=== PATIENT | male | born 1965 | race Hispanic/Latino ===

== ENCOUNTER → 2018-04-09 | Day surgery (SDC) | payer OTHER ==
[2018-04-08 13:44] LABS: BASOPHILS # (AUTO) 0.1 (0.0-0.1); BASOPHILS % 0.9 % (0.0-1.0); EOSINOPHILS # (AUTO) 0.1 (0.0-0.4); EOSINOPHILS % 1.7 % (0.0-6.0); HEMATOCRIT 44.7 % (38.2-49.6); HEMOGLOBIN 15.8 g/dL (14.0-18.0); LYMPHOCYTES # (AUTO) 2.1 (1.0-3.2); LYMPHOCYTES % 28.5 % (18.0-39.1); MEAN CORPUSCULAR HEMOGLOBIN 30.2 pg (28-32); MEAN CORPUSCULAR HGB CONC 35.3 g/dL (31-35); MEAN CORPUSCULAR VOLUME 85.5 fL (81-99); MONOCYTES # (AUTO) 0.5 (0.2-0.8); MONOCYTES % 7.1 % (4.4-11.3); NEUTROPHILS # (AUTO) 4.6 (2.1-6.9); NEUTROPHILS % 61.7 % (38.7-80.0); PLATELET COUNT 211 x10e3/uL (140-360); RED BLOOD COUNT 5.23 x10e6/uL (4.3-5.7); RED CELL DISTRIBUTION WIDTH 12.7 % (11.7-14.4)
[2018-04-08 13:58] LABS: ANION GAP 11.6 mmol/L (8-16); BLOOD UREA NITROGEN 18 mg/dL (7-26); BUN/CREATININE RATIO 20 (6-25); CALCIUM 9.2 mg/dL (8.4-10.2); CARBON DIOXIDE 24 mmol/L (22-29); CHLORIDE 108 mmol/L (98-107); CREATININE, SERUM 0.89 mg/dL (0.72-1.25); EST GLOMERULAR FILTRATION RATE > 60 ML/MIN (60-); GLUCOSE 191 mg/dL (74-118); POTASSIUM 3.6 mmol/L (3.5-5.1); SODIUM 140 mmol/L (136-145)
[~2018-04-09] MED LIST: ATORVASTATIN CA20 MG PO; BUPIVACAINE 0.25%/EPI 30ML SDV INJ ONE; DEXAMETHASONE SOD PHOS INJ 4 MG/ML VIAL ONE; FENTANYL CITRATE/PF 100MCG/2 ML INJ ONE; GLIMEPIRIDE2 MG PO; LIDOCAINE HCL 2% LOCAL INJ 5 ML SDV VIAL INJ ONE; METFORMIN HCL500 M2 PO; MIDAZOLAM HCL 2 MG/2 ML VIAL ONE; ONDANSETRON HCL INJ 2 MG/ML VIAL ONE; PANTOPRAZOLE SO40 MG PO; PROPOFOL IV EMULSION 10 MG/ML 20 ML VIAL ONE; ROCURONIUM BROMIDE 10 MG/ML 5ML VIAL ONE; SEVOFLURANE INHAL SOLN 250 ML PEN BTL ONE
--- NOTE | 2018-04-09 11:31 | Operative Report ---
DATE OF PROCEDURE: April 09, 2018 PREOPERATIVE DIAGNOSIS: Ventral hernia. POSTOPERATIVE DIAGNOSIS: Ventral hernia times 2 and umbilical hernia. OPERATION PERFORMED: Repair of ventral hernia times 2 and umbilical hernia with mesh. BOTTOMING MACHINE OPERATOR: DANIELLA Ellis. ANESTHESIA: General. COMPLICATIONS: None. ESTIMATED BLOOD LOSS: Minimal. DESCRIPTION OF PROCEDURE: With the patient lying in bed in the supine position, under good general endotracheal anesthesia, the abdomen was prepped with Betadine solution and draped in the usual manner. A midline incision was made in the supraumbilical area and carried down through the subcutaneous tissue. Immediately, a hernia sac was identified above the umbilicus. This was slowly and carefully , with normal fascia all the way around. The umbilicus was then , and there was also a hernia in the umbilical opening. Above the other defect was also a small defect representing a third hole in the supraumbilical region. The hernia sac was then resected, and the contents were reduced back to the intra-abdominal cavity. The umbilical hernia defect and the supraumbilical hernia defect were then joined into a single defect and the preperitoneal space was then dissected and cleared off without any difficulty. A medium-size V-patch was then introduced in the preperitoneal space and deployed without any problems to cover all of the defects from underneath. The uppermost defect was then closed primarily with interrupted sutures of #0 Ethibond, anchoring the mesh underneath with the repair. The other defect was then closed transversely using interrupted sutures of #0 Ethibond, anchoring the V-patch with the closing transverse #0 Ethibond sutures. The whole area was then thoroughly irrigated. Perfect hemostasis was ascertained. All layers were infiltrated on the way out with a solution of 1/4 percent Marcaine. Subcutaneous tissue was approximated with 3-0 Vicryl. The umbilicus was then tacked back down to the midline fascia with 3-0 Vicryl, and the skin was closed with clips. A dressing was applied. The sponge, lap and needle count was correct. Patient tolerated the procedure well and returned to the recovery room in stable condition. Job#: [id number]
== END | disposition home or self-care (01) ==
LOC: OR 06:30
PROVIDERS: ATTEND Surgery
DX: K43.9 Ventral hernia without obstruction or gangrene (principal); K42.9 Umbilical hernia without obstruction or gangrene; E11.9 Type 2 diabetes mellitus without complications; K21.9 Gastro-esophageal reflux disease without esophagitis; Z01.810 Encounter for preprocedural cardiovascular examination; Z01.812 Encounter for preprocedural laboratory examination
CPT/HCPCS: 36415 ×2; 49560; 49568; 49585; 80048; 82948; 85025; 93005; J1100; J2001; J2250; J2405

== ENCOUNTER → 2018-10-30 | Day surgery (SDC) | payer OTHER ==
[2018-10-29 16:14] LABS: BASOPHILS % 0.5 % (0.0-1.0); EOSINOPHILS # (AUTO) 0.1 (0.0-0.4); EOSINOPHILS % 1.2 % (0.0-6.0); HEMATOCRIT 41.8 % (38.2-49.6); HEMOGLOBIN 14.2 g/dL (14.0-18.0); LYMPHOCYTES # (AUTO) 1.8 (1.0-3.2); LYMPHOCYTES % 23.5 % (18.0-39.1); MEAN CORPUSCULAR HEMOGLOBIN 30.1 pg (28-32); MEAN CORPUSCULAR VOLUME 88.7 fL (81-99); MONOCYTES # (AUTO) 0.4 (0.2-0.8); MONOCYTES % 5.6 % (4.4-11.3); NEUTROPHILS # (AUTO) 5.3 (2.1-6.9); NEUTROPHILS % 68.8 % (38.7-80.0); PLATELET COUNT 248 x10e3/uL (140-360); RED BLOOD COUNT 4.71 x10e6/uL (4.3-5.7); RED CELL DISTRIBUTION WIDTH 13.5 % (11.7-14.4)
[2018-10-29 16:32] LABS: ANION GAP 12.8 mmol/L (8-16); BLOOD UREA NITROGEN 16 mg/dL (7-26); BUN/CREATININE RATIO 19 (6-25); CALCIUM 9.7 mg/dL (8.4-10.2); CARBON DIOXIDE 24 mmol/L (22-29); CHLORIDE 99 mmol/L (98-107); CREATININE, SERUM 0.85 mg/dL (0.72-1.25); EST GLOMERULAR FILTRATION RATE > 60 ML/MIN (60-); GLUCOSE 323 mg/dL (74-118); POTASSIUM 3.8 mmol/L (3.5-5.1); SODIUM 132 mmol/L (136-145)
[~2018-10-30] MED LIST changes: +ACETAMINOPHEN 1000 MG/100 ML IV ONE; +BUPIVACAINE 0.5%/EPI 30 ML SDV INJ ONE; +CEFOXITIN SOD 1 GM VIAL ONE; -DEXAMETHASONE SOD PHOS INJ 4 MG/ML VIAL ONE; +GELATIN SPONGE 12-7MM ONE; +HYDROGEN PEROXIDE 120 ML BTL ONE; +INSULIN REGULAR, HUMAN 100 UNIT/1 ML 3ML VIAL ONE; +KETOROLAC TROMETHAMINE 30 MG/ML VIAL ONE; +LEVOFLOXACIN 500MG/D5W 100ML 100 ML IV ONE; +LIDOCAINE HCL 2% 30 ML TUBE ONE; -ROCURONIUM BROMIDE 10 MG/ML 5ML VIAL ONE
[2018-10-30 11:10] VITALS: BP 107/78
--- NOTE | 2018-10-30 13:02 | Operative Report ---
DATE OF PROCEDURE: October 30, 2018 PREOPERATIVE DIAGNOSIS: Thrombosed external hemorrhoid at 7 o'clock with the patient in the lithotomy position. POSTOPERATIVE DIAGNOSES 1. Thrombosed external hemorrhoid at 7 o'clock with the patient in the lithotomy position. 2. Pigmented skin tag at 12 o'clock. PROCEDURES PERFORMED 1. Hemorrhoidectomy at 7 o'clock. 2. Excision of pigmented skin tag at 12 o'clock in the lithotomy position also. DESCRIPTION OF PROCEDURE: With the patient lying on the operative table in the supine position, after administration of general endotracheal anesthesia, rectal examination was performed that revealed no masses. There was an obviously present external hemorrhoid that was thrombosed at 7 o'clock with prolapse of an internal component at that location. The patient was then prepped and draped for hemorrhoidectomy. An anal block was given with 0.25% Marcaine with epinephrine, total of 20 mL. After we did that, we introduced the anoscope into the anal canal and packed it with Betadine-containing sponge. We proceeded with placing an apical stitch at the base of the internal hemorrhoid to cut off the blood supply. After we did that, we then excised the hemorrhoid beginning in the area of the anoderm along with the clot and then continued all the way up to the apical stitch. After we did that, we went ahead and closed the mucosa with running 2-0 chromic catgut in a transverse fashion to prevent stricture. Then we closed the anoderm separately and partially with 3-0 chromic. After we completed the procedure, after we ascertained that hemostasis was adequate and there was no active bleeding, we packed the anal canal with a combination of Gelfoam and Surgicel along with 2% Xylocaine jelly. Sterile dressing was applied. The patient tolerated the procedure well and was taken to the recovery room in stable condition. Job#: [id number]
== END | disposition home or self-care (01) ==
LOC: OR 06:41
PROVIDERS: ATTEND Surgery
DX: K64.5 Perianal venous thrombosis (principal); K64.8 Other hemorrhoids; D23.5 Other benign neoplasm of skin of trunk; E11.9 Type 2 diabetes mellitus without complications; Z79.84 Long term (current) use of oral hypoglycemic drugs; F41.9 Anxiety disorder, unspecified; Z01.810 Encounter for preprocedural cardiovascular examination; Z01.812 Encounter for preprocedural laboratory examination; Z88.0 Allergy status to penicillin; Z87.442 Personal history of urinary calculi
CPT/HCPCS: 36415 ×2; 46083; 80048; 82948; 85025; 88304; 93005; J0131; J1885; J1956; J2001; J2250; J2405; J2704; J0694

== ENCOUNTER 2018-11-06 11:38 | Observation (INO) | payer OTHER ==
[~2018-11-06] VITALS: Ht 175.3 cm; Wt 78.5 kg
[~2018-11-06 11:38] MED LIST changes: -ACETAMINOPHEN 1000 MG/100 ML IV ONE; -BUPIVACAINE 0.25%/EPI 30ML SDV INJ ONE; -BUPIVACAINE 0.5%/EPI 30 ML SDV INJ ONE; -CEFOXITIN SOD 1 GM VIAL ONE; -FENTANYL CITRATE/PF 100MCG/2 ML INJ ONE; -GELATIN SPONGE 12-7MM ONE; -HYDROGEN PEROXIDE 120 ML BTL ONE; -INSULIN REGULAR, HUMAN 100 UNIT/1 ML 3ML VIAL ONE; -KETOROLAC TROMETHAMINE 30 MG/ML VIAL ONE; -LEVOFLOXACIN 500MG/D5W 100ML 100 ML IV ONE; -LIDOCAINE HCL 2% 30 ML TUBE ONE; -LIDOCAINE HCL 2% LOCAL INJ 5 ML SDV VIAL INJ ONE; -MIDAZOLAM HCL 2 MG/2 ML VIAL ONE; -ONDANSETRON HCL INJ 2 MG/ML VIAL ONE; -PROPOFOL IV EMULSION 10 MG/ML 20 ML VIAL ONE; -SEVOFLURANE INHAL SOLN 250 ML PEN BTL ONE
[2018-11-06] MEDS ORDERED: LEVOFLOXACIN 500MG/D5W 100ML 100 ML IV ONE (12:11)
[2018-11-06] MEDS ORDERED: GELATIN SPONGE 12-7MM ONE ×2 (12:26→13:42)
[2018-11-06] MEDS ORDERED: BUPIVACAINE 0.25%/EPI 30ML SDV INJ ONE (12:26)
[2018-11-06] MEDS ORDERED: LIDOCAINE JELLY 2% 10ML URO-JET ONE (12:28)
[2018-11-06] MEDS ORDERED: INSULIN REGULAR, HUMAN 100 UNIT/1 ML 3ML VIAL ONE (12:39)
[2018-11-06] MEDS ORDERED: HYDROGEN PEROXIDE 120 ML BTL ONE (13:23)
[2018-11-06] MEDS ORDERED: ONDANSETRON HCL INJ 2 MG/ML VIAL IV PRN (14:15)
[2018-11-06] MEDS ORDERED: HYDROMORPHONE 1MG/1ML INJ IV PRN (14:15)
[2018-11-06] MEDS ORDERED: FENTANYL CITRATE/PF 100MCG/2 ML INJ ONE ×2 (14:39→19:31)
--- NOTE | 2018-11-06 15:04 | Operative Report ---
DATE OF PROCEDURE: November 06, 2018 PREOPERATIVE DIAGNOSIS: Thrombosed hemorrhoid at 11 o'clock. POSTOPERATIVE DIAGNOSIS: Thrombosed hemorrhoid at 11 o'clock. PROCEDURE PERFORMED: Hemorrhoidectomy at 11 o'clock position with the patient in lithotomy position. INDICATIONS AND FINDINGS: A 53-year-old male who 6 days ago underwent hemorrhoidectomy at 7 o'clock for actively thrombosed hemorrhoid, who on followup was found to have another thrombosed hemorrhoid this time at 11 o'clock and very painful. The patient wished to have surgically intervention as opposed to pain control. INTRAOPERATIVE FINDINGS: The patient had a thrombosed external hemorrhoid at 11 o'clock with necrosis external hemorrhoid at 11 o'clock with some ischemic changes of the mucosa of the internal component. Hemorrhoidectomy was then performed. The previously removed hemorrhoid at 7 o'clock appeared to be intact. There was no evidence of infection. DESCRIPTION OF PROCEDURE: With the patient lying on the operating table in the supine position and after administration of general anesthesia, he was prepped and draped for hemorrhoidectomy. With the patient in the lithotomy position, the patient was given an anal block with 0.25% Marcaine with epinephrine. Then the anoscope was introduced. An apical stitch was placed at the apex of the internal component with 0 chromic. Then the hemorrhoidectomy was performed by incising and removing the clotted hemorrhoid along with the internal component up to the apical stitch. The mucosa was then closed with a running partially locking 2-0 chromic. The anoderm was partially closed using interrupted 3-0 chromic also. An anal pack was placed with Gelfoam and Surgicel with 2% jelly. Then a sterile dressing was applied to the anus. The patient tolerated the procedure well. Taken to the recovery room in stable condition. Job#: [id number] MARILEE
[2018-11-06 15:28] VITALS: BP 124/74
[2018-11-06] MEDS: HYDROMORPHONE 2MG/ML 2 MG/ML ML IV PRN (15:28)
[2018-11-06] MEDS: SODIUM CHLORIDE 0.9% 1000ML 1,000 ML IV SCH (15:28)
[2018-11-06] MEDS: METRONIDAZOLE 500MG/NS 100ML 100 ML IV SCH (15:28)
[2018-11-06 16:01] VITALS: BP 124/74
[2018-11-06] MEDS ORDERED: METOCLOPRAMIDE HCL 10 MG/2ML VIAL ONE (18:35)
[2018-11-06] MEDS ORDERED: SEVOFLURANE INHAL SOLN 250 ML PEN BTL ONE (18:35)
[2018-11-06] MEDS ORDERED: LIDOCAINE HCL 2% LOCAL INJ 5 ML SDV VIAL INJ ONE (18:35)
[2018-11-06] MEDS ORDERED: PROPOFOL IV EMULSION 10 MG/ML 20 ML VIAL ONE (18:35)
[2018-11-06] MEDS ORDERED: ONDANSETRON HCL INJ 2 MG/ML VIAL ONE (18:35)
[2018-11-06] MEDS ORDERED: MIDAZOLAM HCL 2 MG/2 ML VIAL ONE (19:31)
[2018-11-06] MEDS: HYDROCODONE/APAP 7.5MG-325MG 1 EA TAB PO PRN (19:57)
[2018-11-06 20:00] VITALS: BP 119/66
[2018-11-07] VITALS: BP 119/67
[2018-11-07] MEDS: SODIUM CHLORIDE 0.9% 1000ML 1,000 ML IV SCH ×2 (00:09→11:42)
[2018-11-07] MEDS: HYDROCODONE/APAP 7.5MG-325MG 1 EA TAB PO PRN ×2 (00:10→09:09)
[2018-11-07] MEDS: METRONIDAZOLE 500MG/NS 100ML 100 ML IV SCH ×3 (00:15→11:42)
[2018-11-07] MEDS: HYDROMORPHONE 2MG/ML 2 MG/ML ML IV PRN ×2 (03:59→09:09)
[2018-11-07 09:20] VITALS: BP 122/64
[2018-11-07 10:04] VITALS: BP 122/64
[2018-11-07 12:00] VITALS: BP 112/66
[2018-11-07] MEDS ORDERED: LEVOFLOXACIN 500MG/D5W 100ML 100 ML IV SCH (12:00)
== END 2018-11-07 16:07 | disposition home or self-care (01) ==
LOC: OR 11:38 → PACU V 14:13 → MED/SURG 14:57
PROVIDERS: ADMIT Surgery; ATTEND Surgery
DX: K64.5 Perianal venous thrombosis (principal); E11.9 Type 2 diabetes mellitus without complications; Z79.84 Long term (current) use of oral hypoglycemic drugs; Z87.891 Personal history of nicotine dependence; Z88.0 Allergy status to penicillin
CPT/HCPCS: 36415; 46320; 82948; 88304; 96367; 96374; 96376; G0378 ×2; J1170 ×2; J1817; J1956 ×2; J2001; J2250; J2405 ×2; J2704; J2765; J7030 ×2

== ENCOUNTER 2019-06-10 10:27 | Emergency (ER) | payer OTHER ==
[~2019-06-10] VITALS: Ht 172.7 cm; Wt 83.5 kg
[2019-06-10] MEDS ORDERED: KETOROLAC TROMETHAMINE 30 MG/ML VIAL IV STA (10:44)
[2019-06-10] MEDS ORDERED: SODIUM CHLORIDE 0.9% 1000ML 1,000 ML IV STA ×2 (10:44→12:47)
[2019-06-10] MEDS ORDERED: SODIUM CHLORIDE 0.9% 1000ML 1,000 ML ONE ×2 (10:57→12:43)
[2019-06-10] MEDS ORDERED: SODIUM CHLORIDE 0.9% 50ML 50 ML ONE (11:19)
[2019-06-10] MEDS ORDERED: IOPAMIDOL 370 MG/ML 200 ML INFUS..BTL INJ ONE (11:19)
--- NOTE | 2019-06-10 12:00 | Diagnostic Imaging Report ---
EXAM: CT Abdomen and Pelvis WITH intravenous contrast INDICATION: Abdominal pain COMPARISON: None. TECHNIQUE: Abdomen and pelvis were scanned utilizing a multidetector helical scanner from the lung base to the pubic symphysis after administration of IV contrast. Coronal and sagittal reformations were obtained. Routine protocol was performed. Scan was performed when during portal venous phase. IV CONTRAST: 100 mL of Isovue-370 ORAL CONTRAST: Water COMPLICATIONS: None RADIATION DOSE: Total DLP: 788.13 mGy*cm Dose modulation, iterative reconstruction, and/or weight based adjustment of the mA/kV was utilized to reduce the radiation dose to as low as reasonably achievable. FINDINGS: LOWER THORAX: No focal consolidation. 3 mm pulmonary nodule in the left lower lobe on series 2 image 1. HEPATOBILIARY: No focal hepatic lesions. No biliary ductal dilatation. The gallbladder appears unremarkable. SPLEEN: No splenomegaly. PANCREAS: No focal masses or ductal dilatation. ADRENALS: No adrenal nodules. KIDNEYS/URETERS: No hydronephrosis, stones, or solid mass lesions. PELVIC ORGANS/BLADDER: Unremarkable. PERITONEUM / RETROPERITONEUM: No free air or fluid. LYMPH NODES: No lymphadenopathy. VESSELS: Mild scattered athetotic calcifications of the abdominal aorta and major branches. GI TRACT: No distention or wall thickening. Appendix. BONES AND SOFT TISSUES: Mild degenerative changes of the visualized spine. No suspicious lytic or blastic lesions. IMPRESSION: No acute findings in the abdomen or pelvis. Signed by: Anum Junior MD on 06/10/2019 11:57 AM
[2019-06-10 13:39] VITALS: BP 135/77
== END 2019-06-10 13:49 | disposition home or self-care (01) ==
LOC: FSED 10:27
DX: R19.7 Diarrhea, unspecified (principal); R10.9 Unspecified abdominal pain; K52.9 Noninfective gastroenteritis and colitis, unspecified; E86.0 Dehydration; I10 Essential (primary) hypertension; E11.9 Type 2 diabetes mellitus without complications
CPT/HCPCS: 74177; 80053; 81003; 85025; 99284; J1885; J7030; Q9967

== ENCOUNTER 2019-06-12 14:10 | Observation (INO) | payer OTHER ==
[~2019-06-12] VITALS: Ht 172.7 cm; Wt 80.4 kg
[~2019-06-12 14:10] MED LIST changes: +MORPHINE SULFATE 2 MG/ML SYR 1ML IV PRN
--- OUTSIDE RECORDS SUMMARY | 2019-06-12 14:13 | XMS REPORT ---
Author Author [facility] Address Unknown Phone Unavailable Care Team Providers Care Guest Relations Manager Name Role Phone Alessandro GRAY Unavailable Unavailable Problems This patient has no known problems. Allergies, Adverse Reactions, Alerts This patient has no known allergies or adverse reactions. Medications This patient has no known medications. Results Test Description Test Time Test Comments Text Results Atomic Results Result Comments CT ABD/PEL WITH CONTRAST-HOPD 2019-06-10 11:52:00 [place] [address] Patient Name: JENIFER NAPIER MR #: [id number] : 1965 Age/Sex: 53/M Req #: [id number] Adm Physician: Ordered by: ENRIQUE GRAY MD Report #: [id number] Location: COUNTS INCLUDE [facility] BEDS AT THE [facility] Room/Bed: Procedure: [id number] HOPD/CT ABD/PEL WITH CONTRAST-HOPD Exam Date: 06/10/19 Exam Time: 1149 REPORT STATUS: Signed EXAM: CT Abdomen and Pelvis WITH intravenous c ontrast INDICATION: Abdominal pain COMPARISON: None. TECHNIQUE: Abdomen and pelvis were scanned utilizing a multidetector helical scanner from the lung base to the pubic symphysis after administration of IV contrast. Coronal and sagittal reformations were obtained. Routine protocol was performed. Scan was performed when during portal venous phase. IV CONTRAST: 100 mL of Isovue-370 ORAL CONTRAST: Water COMPLICATIONS: None RADIATION DOSE: Total DLP: 788.13 mGy*cm Dose modulation, iterative reconstruction, and/or weight based adjustment of the mA/kV was utilized to reduce the radiation dose to as low as reasonably achievable. FINDINGS: LOWER THORAX: No focal consolidation. 3 mm pulmonary nodule in the left lower lobe on series 2 image 1. HEPATOBILIARY: No focal hepatic lesions. No biliary ductal dilatation. The gallbladder appears unremarkable. SPLEEN: No splenomegaly. PANCREAS: No focal masses or ductal dilatation. ADRENALS: No adrenal nodules. KIDNEYS/URETERS: No hydronephrosis, stones, or solid mass lesions. PELVIC ORGANS/BLADDER: Unremarkable. PERITONEUM / RETROPERITONEUM: No free air or fluid. LYMPH NODES: No lymphadenopathy. VESSELS: Mild scattered athetotic calcifications of the abdominal aorta and major branches. GI TRACT: No distention or wall thickening. Appendix. BONES AND SOFT TISSUES: Mild degenerative changes of the visualized spine. No suspicious lytic or blastic lesions. IMPRESSION: No acute findings in the abdomen or pelvis. Signed by: Eliceo Junior MD on 06/10/2019 11:57 AM Dictated By: ELICEO JUNIOR MD 115 Transcribed By: INO on 06/10/19 3404 COPY TO: ENRIQUE GRAY MD
--- NOTE | 2019-06-12 15:28 | Diagnostic Imaging Report ---
Exam: KUB --4 views with chest radiograph Clinical History: Diffuse abdominal pain. Comparison: CT abdomen/pelvis 06/10/2019. Findings: Nonobstructive bowel gas pattern. No evidence of free intraperitoneal air. No evidence of abnormal calcification. No acute bony abnormality. The lungs are clear. No evidence of pneumonia or pulmonary edema. No evidence of pleural effusion or pneumothorax. The cardiomediastinal silhouette is unremarkable. Impression: No acute radiographic abnormality. Signed by: Dr. Real Gonzalez MD on 06/12/2019 3:25 PM
[2019-06-12 15:33] LABS: BASOPHILS % 0.7 % (0.0-1.0); EOSINOPHILS # (AUTO) 0.1 (0.0-0.4); EOSINOPHILS % 1.3 % (0.0-6.0); HEMATOCRIT 45.6 % (38.2-49.6); HEMOGLOBIN 15.9 g/dL (14.0-18.0); LYMPHOCYTES # (AUTO) 1.3 (1.0-3.2); LYMPHOCYTES % 28.6 % (18.0-39.1); MEAN CORPUSCULAR HEMOGLOBIN 29.2 pg (28-32); MEAN CORPUSCULAR HGB CONC 34.9 g/dL (31-35); MEAN CORPUSCULAR VOLUME 83.7 fL (81-99); MONOCYTES # (AUTO) 0.5 (0.2-0.8); MONOCYTES % 11.9 % (4.4-11.3); NEUTROPHILS # (AUTO) 2.6 (2.1-6.9); NEUTROPHILS % 57.3 % (38.7-80.0); PLATELET COUNT 227 x10e3/uL (140-360); RED BLOOD COUNT 5.45 x10e6/uL (4.3-5.7); RED CELL DISTRIBUTION WIDTH 12.9 % (11.7-14.4)
[2019-06-12 15:36] LABS: BILIRUBIN,URINE NEGATIVE (NEGATIVE); CLARITY,URINE CLEAR (CLEAR); COLOR,URINE YELLOW (YELLOW); KETONES,URINE NEGATIVE (NEGATIVE); LEUKOCYTE ESTERASE ,URINE NEGATIVE (NEGATIVE); NITRITE,URINE NEGATIVE (NEGATIVE); PROTEIN,URINE DIPSTICK TRACE (NEGATIVE); URINE UROBILINOGEN 0.2 mg/dL (0.2 - 1)
[2019-06-12 15:50] LABS: AMORPHOUS SEDIMENT,URINE FEW (FEW); BACTERIA,URINE MODERATE /HPF; EPITHELIAL CELLS,URINE FEW /LPF; MUCUS,URINE MODERATE (RARE)
[2019-06-12 15:53] LABS: ALANINE AMINOTRANSFERASE 27 IU/L (0-55); ALBUMIN/GLOBULIN RATIO 0.7 (0.8-2.0); ALKALINE PHOSPHATASE 161 IU/L (40-150); ANION GAP 13.6 mmol/L (8-16); BLOOD UREA NITROGEN 14 mg/dL (7-26); BUN/CREATININE RATIO 17 (6-25); CALCIUM 9.3 mg/dL (8.4-10.2); CARBON DIOXIDE 23 mmol/L (22-29); CHLORIDE 104 mmol/L (98-107); CREATINE KINASE 30 IU/L (30-200); CREATININE, SERUM 0.83 mg/dL (0.72-1.25); EST GLOMERULAR FILTRATION RATE > 60 ML/MIN (60-); GLUCOSE 188 mg/dL (74-118); POTASSIUM 3.6 mmol/L (3.5-5.1); SODIUM 137 mmol/L (136-145)
[2019-06-12] MEDS ORDERED: ONDANSETRON HCL INJ 2MG/ML 2ML 2 MG/ML VIAL IV ONE (15:54)
[2019-06-12] MEDS ORDERED: PANTOPRAZOLE 40 MG 10ML VIAL IV ONE (15:54)
[2019-06-12] MEDS ORDERED: MORPHINE SULFATE INJ 4 MG/ML INJ 1ML IV ONE (15:54)
[2019-06-12] MEDS ORDERED: SODIUM CHLORIDE 0.9% 1000ML 1,000 ML IV ONE (15:54)
[2019-06-12] MEDS ORDERED: SODIUM CHLORIDE 0.9% 1000ML 1,000 ML IV SCH (15:58)
[2019-06-12] MEDS ORDERED: DEXTROSE 50% SYRINGE 50 ML IV PRN (16:00)
[2019-06-12] MEDS ORDERED: ONDANSETRON HCL INJ 2MG/ML 2ML 2 MG/ML VIAL IV PRN (16:00)
[2019-06-12] MEDS ORDERED: MORPHINE SULFATE INJ 4 MG/ML INJ 1ML IV PRN (16:15)
[2019-06-12] MEDS ORDERED: INSULIN REGULAR, HUMAN 100 UNIT/1 ML 3ML VIAL SQ SCH (16:30)
[2019-06-12] MEDS ORDERED: ACETAMINOPHEN 325 MG TAB PO ONE (17:00)
[2019-06-12] MEDS ORDERED: ACETAMINOPHEN 325 MG TAB PO PRN (18:30)
--- NOTE | 2019-06-12 20:30 | NUR ---
Patient transferred form ER via wheelchair. A&Ox4, respirations even & unlabored, no distress noted. Ambulatory w/o assistance. IV to R FA, patent & no infiltration noted. Tele # [phone]. Bowels x4 active, patient states he is no longer having diarrhea. Tender to touch in epigastric area. Patient denies any issues or needs at this time. Call light within reach, bed set to lowest position, side rails x2 raised. is at bedside.
[2019-06-12] MEDS: INSULIN LISPRO 100 UNIT/1 ML 3ML VIAL SQ SCH (21:00)
[2019-06-12] MEDS: SODIUM CHLORIDE 0.9% 1000ML 1,000 ML IV SCH ×2 (21:31→21:33)
[2019-06-12 21:53] VITALS: BP 114/75
[2019-06-12 22:51] VITALS: BP 114/75
[2019-06-12 22:57] VITALS: BP 114/75
[2019-06-13 00:49] VITALS: BP 120/73
[2019-06-13 05:58] VITALS: BP 114/71
--- NOTE | 2019-06-13 07:06 | NUR ---
received pt lying in bed with eyes closed, Resp even and unlabored. IV fluids @ 125ml/hr to right FA. call light within reach.
[2019-06-13 07:13] LABS: BASOPHILS % 0.4 % (0.0-1.0); EOSINOPHILS # (AUTO) 0.1 (0.0-0.4); EOSINOPHILS % 1.9 % (0.0-6.0); HEMATOCRIT 40.6 % (38.2-49.6); HEMOGLOBIN 14.2 g/dL (14.0-18.0); LYMPHOCYTES # (AUTO) 1.8 (1.0-3.2); LYMPHOCYTES % 37.6 % (18.0-39.1); MEAN CORPUSCULAR HEMOGLOBIN 29.2 pg (28-32); MEAN CORPUSCULAR VOLUME 83.5 fL (81-99); MONOCYTES # (AUTO) 0.5 (0.2-0.8); MONOCYTES % 11.1 % (4.4-11.3); NEUTROPHILS # (AUTO) 2.3 (2.1-6.9); NEUTROPHILS % 48.6 % (38.7-80.0); PLATELET COUNT 205 x10e3/uL (140-360); RED BLOOD COUNT 4.86 x10e6/uL (4.3-5.7); RED CELL DISTRIBUTION WIDTH 12.6 % (11.7-14.4)
[2019-06-13] MEDS: INSULIN LISPRO 100 UNIT/1 ML 3ML VIAL SQ SCH ×2 (07:30→11:30)
[2019-06-13] MEDS: SODIUM CHLORIDE 0.9% 1000ML 1,000 ML IV SCH (08:10)
[2019-06-13 08:19] LABS: ALANINE AMINOTRANSFERASE 24 IU/L (0-55); ALBUMIN 2.7 g/dL (3.5-5.0); ALBUMIN/GLOBULIN RATIO 0.8 (0.8-2.0); ALKALINE PHOSPHATASE 135 IU/L (40-150); ANION GAP 12.2 mmol/L (8-16); BLOOD UREA NITROGEN 9 mg/dL (7-26); BUN/CREATININE RATIO 12 (6-25); CALCIUM 8.5 mg/dL (8.4-10.2); CARBON DIOXIDE 23 mmol/L (22-29); CHLORIDE 109 mmol/L (98-107); CREATININE, SERUM 0.76 mg/dL (0.72-1.25); EST GLOMERULAR FILTRATION RATE > 60 ML/MIN (60-); GLUCOSE 126 mg/dL (74-118); PHOSPHORUS 2.7 MG/DL (2.3-4.7); POTASSIUM 3.2 mmol/L (3.5-5.1); SODIUM 141 mmol/L (136-145)
[2019-06-13 08:31] VITALS: BP 155/88
[2019-06-13 08:37] VITALS: BP 155/88
[2019-06-13] MEDS ORDERED: LACTOBACILLUS ACIDOPHILUS CAPSULE PO SCH (09:00)
[2019-06-13 12:22] VITALS: BP 139/66
[2019-06-13] MEDS ORDERED: POTASSIUM CHLORIDE 20 MEQ TAB CR PO NR (14:30)
--- NOTE | 2019-06-13 20:46 | Discharge Summary ---
PRIMARY CARE DOCTOR: Dr. Jonathan Feldman. FINAL DIAGNOSIS: Dehydration due to viral gastroenteritis. SECONDARY DIAGNOSIS: Diabetes. CONSULTANTS: None. PROCEDURES/STUDIES PERFORMED: None. HISTORY: Per H and P. HOSPITAL COURSE: The patient was aggressively hydrated. His diarrhea resolved. Currently, the patient is tolerating p.o. He is urinating well. We will replete his hypokalemia prior to discharge. The patient was seen and examined today. CONDITION ON DISCHARGE: Improved. DISCHARGE MEDICATIONS: Please see medication reconciliation form. Yiching Tony Jones MD YAL/MODL /[id number] cc: Jonathan Feldman MD
== END 2019-06-13 15:20 | disposition home or self-care (01) ==
LOC: ER 14:10 → ERHOLD 16:13 → INTOOBSV 16:13 → MED/SURG2 20:51
PROVIDERS: ADMIT Internal Medicine; ATTEND Internal Medicine
DX: A08.4 Viral intestinal infection, unspecified (principal); E86.0 Dehydration; E11.65 Type 2 diabetes mellitus with hyperglycemia; E78.5 Hyperlipidemia, unspecified; Z88.0 Allergy status to penicillin; Z83.3 Family history of diabetes mellitus; Z82.49 Family history of ischemic heart disease and other diseases of the circulatory system; E87.6 Hypokalemia; Z79.84 Long term (current) use of oral hypoglycemic drugs
CPT/HCPCS: 36415 ×2; 74022; 80053 ×2; 81001; 82550; 82553; 83690; 83735 ×2; 84100; 84484; 85025 ×2; 93005; 99284; G0378 ×2; J7030 ×2; J2270; J2405

== ENCOUNTER 2019-07-07 08:14 | Observation (INO) | payer OTHER ==
[~2019-07-07] VITALS: Ht 172.7 cm; Wt 80.3 kg
[~2019-07-07 08:14] MED LIST changes: -MORPHINE SULFATE 2 MG/ML SYR 1ML IV PRN
[2019-07-07 09:16] LABS: BASOPHILS # (AUTO) 0.1 (0.0-0.1); BASOPHILS % 0.8 % (0.0-1.0); EOSINOPHILS # (AUTO) 0.1 (0.0-0.4); EOSINOPHILS % 1.8 % (0.0-6.0); HEMATOCRIT 43.1 % (38.2-49.6); HEMOGLOBIN 14.9 g/dL (14.0-18.0); LYMPHOCYTES # (AUTO) 1.5 (1.0-3.2); LYMPHOCYTES % 23.4 % (18.0-39.1); MEAN CORPUSCULAR HEMOGLOBIN 29.4 pg (28-32); MEAN CORPUSCULAR HGB CONC 34.6 g/dL (31-35); MEAN CORPUSCULAR VOLUME 85.2 fL (81-99); MONOCYTES # (AUTO) 0.4 (0.2-0.8); MONOCYTES % 5.8 % (4.4-11.3); NEUTROPHILS # (AUTO) 4.5 (2.1-6.9); NEUTROPHILS % 67.6 % (38.7-80.0); PLATELET COUNT 184 x10e3/uL (140-360); RED BLOOD COUNT 5.06 x10e6/uL (4.3-5.7); RED CELL DISTRIBUTION WIDTH 13.4 % (11.7-14.4)
--- NOTE | 2019-07-07 09:18 | NUR ---
Pt sitting up in bed. RR even and unlabored. NIBP, pulse ox, and cardiac monitoring applied to pt. Bed locked in lowest position. Call light in reach. Will continue to monitor.
[2019-07-07 09:32] LABS: INR 0.85; PROTHROMBIN TIME 12.1 seconds (11.9-14.5)
[2019-07-07 09:33] LABS: PARTIAL THROMBOPLASTIN TIME 29.4 seconds (23.8-35.5)
[2019-07-07 09:42] LABS: ALANINE AMINOTRANSFERASE 20 IU/L (0-55); ALBUMIN 3.5 g/dL (3.5-5.0); ALKALINE PHOSPHATASE 159 IU/L (40-150); ANION GAP 14.5 mmol/L (8-16); BLOOD UREA NITROGEN 17 mg/dL (7-26); BUN/CREATININE RATIO 22 (6-25); CALCIUM 9.2 mg/dL (8.4-10.2); CARBON DIOXIDE 23 mmol/L (22-29); CHLORIDE 104 mmol/L (98-107); CREATINE KINASE 72 IU/L (30-200); CREATININE, SERUM 0.79 mg/dL (0.72-1.25); EST GLOMERULAR FILTRATION RATE > 60 ML/MIN (60-); GLUCOSE 236 mg/dL (74-118); POTASSIUM 3.5 mmol/L (3.5-5.1); SODIUM 138 mmol/L (136-145)
--- NOTE | 2019-07-07 09:42 | Diagnostic Imaging Report ---
CT BRAIN WO HISTORY: Dizziness COMPARISON: None. TECHNIQUE: Noncontrast axial scans were obtained from skull base to the vertex. Coronal and sagittal reconstructions obtained from the axial data. One or more of the following dose reduction techniques were used: Automated exposure control, adjustment of the mA and/or kV according to patient size, and/or utilization of iterative reconstruction technique. DISCUSSION: Scalp/Skull: Unremarkable. Brain sulci: Appropriate for patient's age. Ventricles: Normal in size and configuration. No hydrocephalus. Extra-axial spaces: No masses or fluid collections. Mild carotid siphon calcifications are present. Parenchyma: No abnormal densities. No mass, hemorrhage, or large vascular territory acute infarct. Dural sinuses: No abnormal densities. Sellar/Suprasellar region: Intact. Skull base: Intact. Incidental findings: None. IMPRESSION: No acute intracranial abnormalities. Signed by: Dr. Moi Ko M.D. on 07/07/2019 9:29 AM
--- NOTE | 2019-07-07 10:15 | Diagnostic Imaging Report ---
EXAMINATION: CHEST 2 VIEWS INDICATION: Shortness of breath and dizziness COMPARISON: Chest radiograph of 06/12/2019 FINDINGS: LINES/TUBES:EKG leads overlie the chest. LUNGS:The lungs are well-inflated. No focal consolidation or pulmonary edema. PLEURA:No pleural effusion or pneumothorax. MEDIASTINUM:The cardiomediastinal silhouette appears normal in size and shape. BONES/SOFT TISSUES:No acute osseous injury. ABDOMEN:No free air under the diaphragm. IMPRESSION: No focal pneumonia or pulmonary edema. Signed by: Anum Junior MD on 07/07/2019 10:11 AM
[2019-07-07] MEDS ORDERED: SODIUM CHLORIDE 0.9% 1000ML 1,000 ML IV STA (10:29)
[2019-07-07] MEDS ORDERED: MORPHINE SULFATE 2 MG/ML SYR 1ML IV PRN (10:30)
[2019-07-07] MEDS ORDERED: DIPHENHYDRAMINE HCL INJ 50 MG/ML VIAL IV PRN (10:30)
[2019-07-07] MEDS ORDERED: ACETAMINOPHEN 325 MG TAB PO PRN (10:30)
[2019-07-07] MEDS ORDERED: ENALAPRILAT IV INJ 1.25 MG/ML VIAL IV PRN (10:30)
[2019-07-07] MEDS ORDERED: DEXTROSE 50% SYRINGE 50 ML IV PRN (10:30)
[2019-07-07] MEDS ORDERED: ONDANSETRON HCL INJ 2MG/ML 2ML 2 MG/ML VIAL IV PRN (10:30)
--- NOTE | 2019-07-07 10:33 | NUR ---
Pt resting comfortably. RR even and unlabored. NAD noted at the present time. Call light remains in reach. Son at bedside. Will continue to monitor.
[2019-07-07] MEDS ORDERED: ENOXAPARIN INJ 80 MG/0.8 ML SYR SC NR (10:45)
--- NOTE | 2019-07-07 11:01 | NUR ---
Pt resting comfortably. Reports feeling better. States not having any CP or dizziness at the present time.
[2019-07-07 11:24] LABS: BILIRUBIN,URINE NEGATIVE (NEGATIVE); CLARITY,URINE CLEAR (CLEAR); COLOR,URINE YELLOW (YELLOW); KETONES,URINE TRACE (NEGATIVE); LEUKOCYTE ESTERASE ,URINE NEGATIVE (NEGATIVE); NITRITE,URINE NEGATIVE (NEGATIVE); PROTEIN,URINE DIPSTICK NEGATIVE (NEGATIVE); URINE UROBILINOGEN 2 mg/dL (0.2 - 1)
[2019-07-07] MEDS: METOPROLOL TARTRATE 25 MG TAB PO SCH ×2 (11:44→23:01)
[2019-07-07 11:46] LABS: BACTERIA,URINE MODERATE /HPF; EPITHELIAL CELLS,URINE FEW /LPF; RBC,URINE 0-5 /HPF (0-5)
[2019-07-07] MEDS: FAMOTIDINE 20 MG/2 ML VIAL IV SCH ×2 (11:55→23:01)
--- NOTE | 2019-07-07 11:56 | NUR ---
Report and care hand off given to Sharyn ANDINO.
[2019-07-07] MEDS ORDERED: NITROGLYCERIN 2% OINT 1 GM PKT TOP SCH (12:00)
--- NOTE | 2019-07-07 12:00 | NUR ---
REC'D REPORT IN WALKING ROUNDS WITH SINA ANTONIO
[2019-07-07] MEDS: INSULIN REGULAR, HUMAN 100 UNIT/1 ML 3ML VIAL SQ SCH ×3 (12:06→21:11)
[2019-07-07 12:18] LABS: AMPHETAMINES SCREEN,URINE NEGATIVE (NEGATIVE); BENZODIAZEPINES SCREEN,URINE NEGATIVE (NEGATIVE); PHENCYCLIDINE SCREEN,URINE NEGATIVE (NEGATIVE)
[2019-07-07] MEDS ORDERED: MUPIROCIN22 GM (12:32)
[2019-07-07] MEDS ORDERED: JANUMET 50-5001 EACH (12:32)
[2019-07-07] MEDS ORDERED: PANTOPRAZOLE SO40 MG (12:32)
[2019-07-07] MEDS: AZTREONAM 2GM/NS 100ML 100 ML IV SCH (13:22)
--- NOTE | 2019-07-07 15:00 | NUR ---
PT TO THE FLOOR AT THIS TIME. VITALS WNL. FAMILY AT BEDSIDE. PT DENIES NEEDS AT THIS TIME.
[2019-07-07 16:00] VITALS: BP 121/78
[2019-07-07] MEDS ORDERED: FAMOTIDINE 20 MG/2 ML VIAL IV SCH (17:00)
[2019-07-07 17:59] LABS: CREATINE KINASE 59 IU/L (30-200)
[2019-07-07] MEDS: ASPIRIN 81 MG ENTERIC COATED PO SCH (18:09)
[2019-07-07 20:16] VITALS: BP 121/78
[2019-07-07 21:00] VITALS: BP 121/78
[2019-07-07] MEDS ORDERED: CEFTRIAXONE SOD 1 GM VIAL IV SCH (21:00)
[2019-07-07] MEDS ORDERED: ZOLPIDEM TARTRATE 5 MG TAB PO PRN (21:00)
[2019-07-07] MEDS: SIMVASTATIN 40 MG TAB PO SCH (21:10)
--- NOTE | 2019-07-07 22:03 | NUR ---
History [id number]
--- NOTE | 2019-07-07 22:57 | Consultation ---
DATE OF CONSULTATION: Cardiac Consultation REASON FOR CONSULTATION: Chest pain. HISTORY OF PRESENT ILLNESS: A 53-year-old gentleman, poorly historian, patient of Dr. Jonathan Feldman, diabetic since 2014 and hyperlipidemic. The patient was here recently with food poisoning. He is very active and he is working as concrete supervisor filtration and with activity, he does not have any symptoms. He woke up this morning, sleepy, imbalanced gait, not feeling well, came to the emergency room. When they asked him about chest pressure, he said yes, he is having chest pressure and tightness. The patient had a chest x-ray, which showed no acute changes and CT scan showed no acute changes. First set of cardiac enzyme is normal. Cardiac consultation is obtained. Prior to this illness, the patient denied having any angina or any other symptoms. He is very active as mentioned. By the way, he is very poorly historian and he is in denial about other illnesses and symptoms. REVIEW OF SYSTEMS: Extensive to all systems, will be summarized for clarity. GENERAL: No fever, no chills. HEENT: Unremarkable. No vision problem. No hearing problem. PULMONARY: No cough. No hemoptysis. CARDIAC: As per above. No palpitation. No syncope or presyncope. GI: No hematemesis. No melena. No diarrhea. Recent food poisoning few months ago. : No hematuria. No dysuria. MUSCULOSKELETAL: No aches. No pain. NEUROLOGICAL: No prior seizure activity. No prior TIA. No localized weakness. ENDOCRINE: He is diabetic, on medication. HEMATOLOGY: No easy bruising or bleeding. SOCIAL HISTORY: He is . He is nonsmoker and non-alcohol drinker. He is concrete supervisor filtration. HOME MEDICATIONS: 1. Lipitor 20 mg a day. 2. Januvia one tablet a day. 3. Amaryl 2 mg a day. 4. Metformin 500 mg a day. ALLERGIES: PENICILLIN, WOULD DEVELOP RASH. PAST MEDICAL HISTORY: 1. Diabetes mellitus. 2. Kidney stone. 3. Hyperlipidemia. 4. Umbilical hernia surgery. 5. Trauma to the left finger. 6. Hemorrhoidectomy. FAMILY HISTORY: Father at age 73 after gallbladder surgery. They were unable to extubate him. Mother diabetic at age 78. One brother, 3 sisters all are healthy, 3 healthy sons. PHYSICAL EXAMINATION: VITAL SIGNS: Height of 5 feet 8 inches, weight 177 pounds, blood pressure 130/70, heart rate of 80, respiratory rate of 18, temperature of 97.9 Fahrenheit. HEENT: Pupils are equal and reactive. NECK: No elevation of jugular venous pulsation. CHEST: Decreased air entry, but clear to auscultation and percussion. HEART: PMI 5th intercostal space. Normal first and second heart sounds. ABDOMEN: Soft with good bowel sounds. No organomegaly. No abdominal bruits. EXTREMITIES: No cyanosis, no clubbing, no edema. Decreased feet pulses. No delay between pulses. NEUROLOGIC: Awake, alert, and oriented. No motor or sensory deficits. LABORATORY DATA: White blood cell count of 6.5, hemoglobin of 14.9, hematocrit 43%, platelet count of 184,000. BUN of 17, creatinine of 0.8. Troponin is normal. Chest x-ray by report showed no widening mediastinum. CT by report is normal. EKG is normal sinus rhythm. IMPRESSION AND PLAN: 1. Diabetes mellitus. 2. Hypercholesterolemia. 3. Compliance issue. 4. Transient episode of dizziness and imbalance gait, resolved after the patient went to sleep and wake up this afternoon. 5. Chest pain. In this age group, regardless of the presentation, coronary artery disease is a probability. I would concur with the current plan. I will start the patient on aspirin. We will check his lipid profile. We will check second set of cardiac enzymes. If this came back normal, we will do a stress test. We will check his echocardiogram and we will check his carotid Doppler. We will keep him on telemetry. Differential diagnosis are discussed with the patient and his friend. Discussed with the nursing staff, orders are done. MD ALDO Jones/MODL /[id number]
[2019-07-08] VITALS (7 sets, daily range): BP systolic 109–129; BP diastolic 65–84
--- NOTE | 2019-07-08 00:22 | Consultation ---
DATE OF CONSULTATION: 07/07/2019 Neurology Consult Note HISTORY OF PRESENT ILLNESS: Mr. Cui is a 53-year-old right-hand dominant man with past medical history significant for hyperlipidemia and diabetes mellitus type 2, admitted to [facility] under observation status on July 07, 2019, with dizziness, drowsiness, and chest pain/tightness. At approximately 0530 hours on the day of admission, the patient awoke with dizziness, which he further describes as a mild vertiginous sensation. The sensation of dizziness was constant and not exacerbated or improved by anything. Mr. Cui endorses mild impairment of gait and poor balance associated with the dizziness. He does not report a visual field cut or other disturbance, dysarthria, aphasia, facial droop, hemiparesis, hemihypesthesia, or confusion associated with the dizziness. Mr. Cui reports experiencing vertigo approximately 6 to 8 months ago. He was diagnosed with benign paroxysmal positional vertigo and treated with (presumably) a modified Rodriguez maneuver. In addition to the above symptoms, Mr. Cui reports extreme drowsiness and chest pain/tightness. Mr. Cui attempted to go to work, but left at approximately 0800 hours and proceeded to the emergency center at [facility] for further evaluation of his symptoms. Upon arrival in the emergency center, the patient was afebrile with a blood pressure of 136/77 mmHg and a pulse of 85 beats per minute. Documentation of the patient's neurological examination is not available for review at present. The patient's laboratory data was significant for hyperglycemia with a fingerstick blood glucose of 211. His urinalysis is significant for trace ketones, 6-10 white blood cells, and moderate urine bacteria. A urine drug screen was negative. While in the emergency center, CT of the brain without contrast was performed. This study did not reveal evidence of recent large territorial ischemia or hemorrhage. Mr. Cui was admitted to [facility] under observation status for further evaluation and treatment of his symptoms. Of note, the patient took a nap, while in the emergency center from approximately 1000 to 1230 or 1300 hours. When he awoke, all of Mr. Cui's symptoms had resolved. Mr. Cui does not report pain or pressure behind either ear, tinnitus or hearing loss affecting either ear, or discharge from either ear associated with the above described dizziness. REVIEW OF SYSTEMS: Chest pain/tightness, dizziness which is further described as a vertiginous sensation, impairment of balance and gait, fatigue. Otherwise, a 12-point review of systems is negative. PAST MEDICAL HISTORY: Hyperlipidemia, diabetes mellitus type 2, and gastroesophageal reflux disease. PAST SURGICAL HISTORY: Ventral hernia repair, hemorrhoidectomy, and repair of left ring finger amputation. PAST HOSPITALIZATIONS: Surgeries/procedures as listed, food poisoning one month ago. FAMILY MEDICAL HISTORY: Hypertension and diabetes mellitus. There is no known family history of coronary artery disease, myocardial infarction, or stroke. SOCIAL HISTORY: The patient is . He works in construction. The patient does report a prior history of tobacco use, but quit smoking cigarettes approximately 20 years ago. Mr. Cui drinks 1-2 beers every 2-3 weeks. He does not report current or prior recreational drug use. HOME MEDICATIONS: Atorvastatin 40 mg by mouth at bedtime daily, glimepiride 2 mg by mouth daily, metformin 500 mg by mouth twice daily, Janumet 50/500 mg one tablet by mouth twice daily, pantoprazole 40 mg by mouth daily, and mupirocin 22 g ointment apply twice daily as directed. HOSPITAL MEDICATIONS: Tylenol, aspirin, aztreonam, Benadryl, Vasotec, Pepcid, insulin human regular, Lopressor, morphine, Zofran, Zocor, and Ambien. ALLERGIES: PENICILLIN. NO KNOWN FOOD ALLERGIES. NO KNOWN ALLERGIES TO LATEX. NO KNOWN ALLERGIES TO IODINE OR OTHER CONTRAST MATERIALS. PHYSICAL EXAMINATION: VITAL SIGNS: Height 68 inches, weight 177 pounds, BMI 26.9 kg/m2, blood pressure 128/87 mmHg, pulse 68 beats per minute, respiratory rate 15 breaths per minute, and oxygen saturation 100% on room air. GENERAL: The patient is awake and alert, does not appear distressed. HEENT: Normocephalic and atraumatic. Pupils are equal, round, and reactive to light. Moist mucous membranes. NECK: Supple. No appreciable thyromegaly. No appreciable carotid bruits. CARDIOVASCULAR: S1, S2, regular rate and rhythm. No murmurs, rubs, or gallops. RESPIRATORY: Clear to auscultation bilaterally. No wheezes, rhonchi, or rales. EXTREMITIES: The skin is warm and dry. No clubbing, cyanosis, or edema. The posterior tibial and dorsalis pedis pulses are 2+ and symmetric. SKIN: No rashes or lesions. NEUROLOGIC: Memory/Attention: The patient is awake and alert, oriented to person, place, time, and situation. Cranial Nerves: Cranial nerve I - not tested. Cranial nerves II, III, IV, and - pupils are equal and round, reactive briskly to light (from 4 mm to 2 mm). Extraocular movements intact. No nystagmus. Cranial nerve V - sensation to light touch and pinprick is intact in the bilateral V1 through V3 distributions. Strength in the temporalis and masseter muscles are within normal limits. Cranial nerve VII - the face is symmetric as are all facial movements. Strength is within normal limits. Cranial nerve VIII - hearing is intact to finger rub bilaterally. Cranial nerves IX, X - the soft palate elevates equally and symmetrically. Cranial nerve XI - normal strength of the bilateral sternocleidomastoid and trapezius muscles. Cranial nerve XII - the tongue protrudes midline and moves symmetrically from [id number]. Strength: Bulk is normal. Strength is 5/5 in the bilateral deltoids, biceps, triceps, wrist flexors and extensors, finger flexors and extensors, intrinsic hand muscles, hip flexors, knee flexors and extensors, ankle dorsiflexion and plantar flexion, and intrinsic foot muscles. Tone is normal. DTRs: Deep tendon reflexes are 2+ and symmetric at the triceps, biceps, brachioradialis, and patellas. Deep tendon reflexes are 1+ and symmetric at the Achilles. Plantar responses are flexor bilaterally. Sensation: Sensation is intact to light touch and pinprick in both arms and both legs. Cerebellar: Czwoht-xhds-kawchl and heel-carranza movements are intact without dysmetria or other impairment. Gait: Deferred. Speech: Spontaneous speech is normal without appreciable dysarthria or aphasia. Repetition is intact. Involuntary Movements: None. Pronator Drift: None. LABORATORY DATA: A comprehensive metabolic panel is significant for an elevated serum glucose of 236 and an elevated alkaline phosphatase of 159. Cardiac enzymes are negative x1. The CBC with differential and platelets is unremarkable. The coagulation profile is within normal limits. A urinalysis is significant for trace ketones, 6-10 white blood cells, and moderate urine bacteria with few urine epithelial cells. A urine drug screen is negative. A urine culture is pending. DIAGNOSTIC STUDIES: Electrocardiogram on 07/07/2019: Normal sinus rhythm at 75 beats per minute. Chest x-ray on 07/07/2019: No focal pneumonia or pulmonary edema. CT of the brain without contrast on 07/07/2019: On my review, there is no evidence of recent or remote large territorial ischemia, hemorrhage, mass, or mass effect. Cerebral volumes are appropriate for age. There are no findings suspicious for chronic small-vessel ischemic disease. ASSESSMENT AND PLAN: Mr. Cui is a 53-year-old right-hand dominant man with multiple vascular risk factors, admitted to [facility] on July 07, 2019, with multiple symptoms including: Vertigo, drowsiness, and chest pain/tightness. After a 2 to 3-hour nap, all symptoms resolved. Mr. Cui's neurological examination is nonfocal. His laboratory data and other diagnostic studies have been reviewed and are documented above. The duration of the patient's symptoms excludes the diagnosis of transient ischemic attack. The patient's normal (nonfocal) neurological examination, normal vital signs, and negative neuroimaging study make the diagnosis of stroke highly improbable. There are no recommendations from the Neurology Service. The patient may be discharged to home as per the primary service. TIME SPENT: 50 minutes. Maryjane Singleton MD CP/RAMSEY /[id number] MTDD
[2019-07-08] MEDS: AZTREONAM 2GM/NS 100ML 100 ML IV SCH ×2 (01:45→14:33)
[2019-07-08] MEDS ORDERED: SODIUM CHLORIDE 0.9% 250ML 250 ML ONE (01:46)
--- NOTE | 2019-07-08 04:18 | History and Physical ---
PRIMARY CARE DOCTOR: Jonathan Feldman MD HOSPITAL DOCTOR: Roshan Jones MD This is coverage for Dr. Jones. CHIEF COMPLAINT: Dizziness. HISTORY OF PRESENT ILLNESS: Mr. Cui is a pleasant 53-year-old gentleman with dizziness. The patient having lethargy and this was witnessed by the emergency room team when he came to emergency room. There is also some nonspecific chest tightness. Midsternal chest location of tightness, but there is also some of this in the back and the left arm. He was not able to stand very well and does report confusion. The patient does not recall too much about. He furthermore has had a rash and he has been having some pruritus to the rash on the lower legs for the last three weeks. He saw his primary care doctor for this. He denies any history of any stress test or EKG to lower leg. Denies any cardiac workup to include echo or stress testing heart catheterization. PAST MEDICAL HISTORY: Diabetes, hyperlipidemia, hemorrhoidectomy, hernia repair, and finger surgery. MEDICATIONS: From medication record. ALLERGIES: PENICILLIN IS CITED. SOCIAL HISTORY: Smoked from age [age], two pack per day. No alcohol. No drugs. 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 FAMILY HISTORY: Noncontributory. REVIEW OF SYSTEMS: GENERAL: No weight changes. OPHTHALMOLOGIC: No double vision. ENT: No ulcers in mouth. ENDOCRINE: No known thyroid disease. CARDIAC: No heart attack. PULMONARY: No asthma. GI: No constipation. : No kidney stones. DERMATOLOGIC: No rash. NEUROLOGIC: No seizures. PSYCHIATRIC: No depression. OBJECTIVE: VITAL SIGNS: Afebrile, vital signs noted reviewed per the chart record. GENERAL: In no acute distress. Alert and calm in bed now. HEENT: Normocephalic and atraumatic. NECK: Supple. THROAT: Midline. LUNGS: Bilateral air entry, clear. CARDIOVASCULAR: S1, S2. No murmurs, rubs, or gallops. ABDOMEN: Soft and nontender. EXTREMITIES: No clubbing, no cyanosis, there is no edema. INTEGUMENT: Mild purpura on legs, flat patches, but there is some dryness around and he has used some medicine on them. LABORATORY DATA: 3.5 potassium, 0.8 creatinine. 22 bicarbonate, 7 white count, 43 hematocrit, platelets 184. IMPRESSION AND PLAN: 1. Syndrome of chest pain, chest tightness, treated as a possible acute coronary syndrome, although it seems less likely. 2. Syndrome of lethargy and dizziness, encephalopathy, possibly metabolic with other. 3. Recent onset lower legs rash. 4. Diabetes. 5. Hyperlipidemia. 6. Urinary tract infection per urinalysis. At this time, Cardiology consult. Neurology evaluation to rule out seizures. Start him on antibiotics and we will follow his clinical progress. Check urinary drug screening. We will follow along closely. Get stress less likely. Thank you very much for allowing Dr. Jones and I had the chance to participate in the care of Mr. Jesse Cui. Please call for questions. MD GAGAN Nelson/RAMSEY /[id number]
[2019-07-08 05:39] LABS: BASOPHILS # (AUTO) 0.1 (0.0-0.1); BASOPHILS % 0.8 % (0.0-1.0); EOSINOPHILS # (AUTO) 0.3 (0.0-0.4); HEMATOCRIT 43.3 % (38.2-49.6); LYMPHOCYTES # (AUTO) 2.7 (1.0-3.2); LYMPHOCYTES % 31.6 % (18.0-39.1); MEAN CORPUSCULAR HEMOGLOBIN 29.9 pg (28-32); MEAN CORPUSCULAR HGB CONC 34.6 g/dL (31-35); MEAN CORPUSCULAR VOLUME 86.3 fL (81-99); MONOCYTES # (AUTO) 0.6 (0.2-0.8); MONOCYTES % 7.6 % (4.4-11.3); NEUTROPHILS # (AUTO) 4.8 (2.1-6.9); NEUTROPHILS % 56.4 % (38.7-80.0); PLATELET COUNT 194 x10e3/uL (140-360); RED BLOOD COUNT 5.02 x10e6/uL (4.3-5.7); RED CELL DISTRIBUTION WIDTH 13.4 % (11.7-14.4)
[2019-07-08 06:03] LABS: CHOL/HDL RATIO 6.1 (3.9-4.7)
[2019-07-08 06:05] LABS: ALANINE AMINOTRANSFERASE 17 IU/L (0-55); ALBUMIN 3.1 g/dL (3.5-5.0); ALBUMIN/GLOBULIN RATIO 0.9 (0.8-2.0); ALKALINE PHOSPHATASE 139 IU/L (40-150); ANION GAP 15.2 mmol/L (8-16); BLOOD UREA NITROGEN 16 mg/dL (7-26); BUN/CREATININE RATIO 19 (6-25); CALCIUM 9.2 mg/dL (8.4-10.2); CARBON DIOXIDE 25 mmol/L (22-29); CHLORIDE 104 mmol/L (98-107); CREATININE, SERUM 0.85 mg/dL (0.72-1.25); EST GLOMERULAR FILTRATION RATE > 60 ML/MIN (60-); GLUCOSE 134 mg/dL (74-118); POTASSIUM 4.2 mmol/L (3.5-5.1); SODIUM 140 mmol/L (136-145)
[2019-07-08 06:24] LABS: THYROID STIMULATING HORMONE 1.104 uIU/mL (0.350-4.940)
[2019-07-08] MEDS: INSULIN REGULAR, HUMAN 100 UNIT/1 ML 3ML VIAL SQ SCH ×4 (07:30→21:24)
--- NOTE | 2019-07-08 07:30 | NUR ---
Report given to oncoming nurse,walking round done.
[2019-07-08] MEDS ORDERED: ASPIRIN 325 MG TAB EC PO SCH (09:00)
[2019-07-08] MEDS: ASPIRIN 81 MG ENTERIC COATED PO SCH (12:51)
[2019-07-08] MEDS: FAMOTIDINE 20 MG/2 ML VIAL IV SCH ×2 (12:51→21:29)
[2019-07-08] MEDS: METOPROLOL TARTRATE 25 MG TAB PO SCH ×3 (12:53→21:50)
--- NOTE | 2019-07-08 18:05 | NUR ---
RECEIVED PATIENT FROM OBS UNIT. HE AMBULATED TO ROOM, DENIES ANY CP OR SOB. HE WAS ORIENTED TO NEW ROOM AND CALL MCCLURE.
--- NOTE | 2019-07-08 18:15 | Operative Report ---
DATE OF PROCEDURE: 07/08/2019 SURGEON: Mary Morrell MD TITLE OF THE TEST: Cardiac stress test. TECHNICAL DETAILS: The protocol is a Kojo with target heart rate at 142 per minute. RESULTS: 1. The patient exercised for 9 minute and 29 seconds. 2. Heart rate increased from 78 per minute to 144 per minute. 3. Blood pressure increased from 130/80 to 150/64. No EKG changes. 4. No chest pain. IMPRESSION: Negative cardiac stress test with good exercise tolerance. Limitations of negative cardiac stress test are discussed. Mary Morrell MD MOJ/MODL /[id number]
--- NOTE | 2019-07-08 18:33 | NUR ---
DR. SAINI CALLED PER DR. CASTRO'S REQUEST TO NOTIFY THAT THIS PATIENT BELONGS TO HIS SERVICE. DR. SAINI WAS AGREEABLE.
--- NOTE | 2019-07-08 18:53 | NUR ---
Got report from oncoming nurse. Patient in bed. Call light within reach.
[2019-07-08] MEDS: SIMVASTATIN 40 MG TAB PO SCH (21:13)
[2019-07-09] VITALS: BP 116/65
[2019-07-09] MEDS: AZTREONAM 2GM/NS 100ML 100 ML IV SCH (00:49)
[2019-07-09] MEDS ORDERED: SODIUM CHLORIDE 0.9% 250ML 250 ML ONE (00:57)
[2019-07-09 03:28] LABS: BASOPHILS # (AUTO) 0.1 (0.0-0.1); BASOPHILS % 0.8 % (0.0-1.0); EOSINOPHILS # (AUTO) 0.1 (0.0-0.4); EOSINOPHILS % 2.1 % (0.0-6.0); HEMATOCRIT 42.8 % (38.2-49.6); HEMOGLOBIN 14.8 g/dL (14.0-18.0); LYMPHOCYTES # (AUTO) 2.2 (1.0-3.2); LYMPHOCYTES % 33.6 % (18.0-39.1); MEAN CORPUSCULAR HEMOGLOBIN 29.2 pg (28-32); MEAN CORPUSCULAR HGB CONC 34.6 g/dL (31-35); MEAN CORPUSCULAR VOLUME 84.4 fL (81-99); MONOCYTES # (AUTO) 0.4 (0.2-0.8); MONOCYTES % 6.3 % (4.4-11.3); NEUTROPHILS # (AUTO) 3.7 (2.1-6.9); NEUTROPHILS % 56.7 % (38.7-80.0); PLATELET COUNT 180 x10e3/uL (140-360); RED BLOOD COUNT 5.07 x10e6/uL (4.3-5.7); RED CELL DISTRIBUTION WIDTH 13.3 % (11.7-14.4)
[2019-07-09 03:45] LABS: ANION GAP 13.5 mmol/L (8-16); BLOOD UREA NITROGEN 14 mg/dL (7-26); BUN/CREATININE RATIO 18 (6-25); CALCIUM 9.1 mg/dL (8.4-10.2); CARBON DIOXIDE 23 mmol/L (22-29); CHLORIDE 103 mmol/L (98-107); CREATININE, SERUM 0.78 mg/dL (0.72-1.25); EST GLOMERULAR FILTRATION RATE > 60 ML/MIN (60-); GLUCOSE 190 mg/dL (74-118); POTASSIUM 3.5 mmol/L (3.5-5.1); SODIUM 136 mmol/L (136-145)
[2019-07-09] MEDS ORDERED: ASPIRIN EC81 MG PO (03:45)
[2019-07-09] MEDS ORDERED: LOPRESSOR25 MG PO (03:45)
[2019-07-09 04:00] VITALS: BP 116/65
--- NOTE | 2019-07-09 07:15 | NUR ---
Gave report to oncoming nurse. Call light within reach. Patient in bed. at bedside
[2019-07-09 07:30] VITALS: BP 126/81
[2019-07-09] MEDS: INSULIN REGULAR, HUMAN 100 UNIT/1 ML 3ML VIAL SQ SCH (07:30)
--- NOTE | 2019-07-09 07:30 | NUR ---
REC'D PT AAOX3 ON ROOM AIR. NO S/S OF DISTRESS. IV TO LEFT AC PATENT AND INTACT. AT BEDSIDE. BED IN LOWEST POSITION, SIDE RAILS UPX2, AND CALL MCCLURE WITHIN REACH.
[2019-07-09 08:00] VITALS: BP 126/81
[2019-07-09] MEDS: FAMOTIDINE 20 MG/2 ML VIAL IV SCH (09:05)
[2019-07-09] MEDS: ASPIRIN 81 MG ENTERIC COATED PO SCH (09:05)
--- NOTE | 2019-07-09 10:45 | NUR ---
ALAN HARRIS SAID OKAY TO ASPIRIN AND LOPRESSOR MEDICATIONS AND THAT PT OKAY TO BE DISCHARGED. NOTIFIED GISSELL PHILLIPS AND SAID TO DISCHARGE PT.
[2019-07-09] MEDS ORDERED: ONDANSETRON HCL 4 MG ORAL DISINTEGRATING TAB PO PRN (12:00)
--- NOTE | 2019-07-09 12:20 | NUR ---
REMOVED IV WITHOUT ANY COMPLICATIONS. PROVIDED DISCHARGE PAPERS AND PRESCRIPTIONS AND EXPLAINED TO PT. EXPLAINED HIS FOLLOW UPS WITH PCP AND DR. ALBERT.ESCORTED TO THE FRONT OF HOSPITAL WHERE PICKED UP.
[2019-07-09] MEDS ORDERED: FAMOTIDINE 20 MG TAB PO SCH (16:30)
--- NOTE | 2019-07-10 00:59 | Discharge Summary ---
ADMISSION DIAGNOSES: Chest pain, dizziness, lethargy, lower leg rash, diabetes, hyperlipidemia, urinary tract infection, present on admission. DISCHARGE DIAGNOSES: Chest pain, dizziness, lethargy, lower leg rash, diabetes, hyperlipidemia, urinary tract infection, present on admission, rule out urinary tract infection, rule out myocardial infarction. HISTORY: The patient has a history of hyperlipidemia and diabetes. SURGICAL HISTORY: Hemorrhoidectomy, hernia repair, and finger surgery. SOCIAL HISTORY: The patient smokes two packs per day. No alcohol or drug use indicated. HOSPITAL COURSE: A 53-year-old male complains of dizziness and lethargy as well as nonspecific chest tightness, midsternal location which radiates to the back and left arm. He was not able to stand very well and does report confusion. On admission, chest x-ray was negative. Troponins were negative x2. Urine drug screen was negative. The patient was taken to a stress test which was negative. CT of the brain was negative. Cardiology cleared the patient for discharge and Neurology was also consulted who says it is unlikely for the patient to have a stroke or TIA. Urine culture was negative. The patient was discharged home with aspirin and metoprolol for Cardiology recommendation. He will continue Lipitor, glimepiride, metformin, Protonix, and Janumet from home. The patient and understand discharge instructions and agrees to plan. Vital signs stable. Patient afebrile. Dictated by Nallely Jaramillo NP MD ANNA Jeff/RAMSEY /[id number]
== END 2019-07-09 12:20 | disposition home or self-care (01) ==
LOC: ER 08:14 → ERHOLD 09:01 → IMCU 14:45 → MED/SURG 07-08 17:55
PROVIDERS: ADMIT Internal Medicine; ATTEND Internal Medicine
DX: R07.9 Chest pain, unspecified (principal); E11.65 Type 2 diabetes mellitus with hyperglycemia; Z87.442 Personal history of urinary calculi; Z88.0 Allergy status to penicillin; N39.0 Urinary tract infection, site not specified; G93.40 Encephalopathy, unspecified; E78.00 Pure hypercholesterolemia, unspecified; Z91.19 Patient's noncompliance with other medical treatment and regimen
CPT/HCPCS: 36415 ×3; 70450; 71046; 80048; 80053 ×2; 80061; 80307; 81001; 82550; 82553; 82948 ×3; 83036; 83880; 84443; 84484; 85025 ×3; 85610; 85730; 87086; 93005; 93017; 93306; 93880; 96372; 97161; 99284; G0378 ×3; J1817; J7030; J7050 ×2

== ENCOUNTER → 2022-07-18 | Day surgery (SDC) | payer OTHER ==
[~2022-07-18] MED LIST changes: +ACETAMINOPHEN 1000 MG/100 ML IV ONE; +ASPIRIN EC81 MG PO; +CLINDAMYCIN PHOS 900MG/ 50ML 50 ML IV ONE; +DEXAMETHASONE SOD PHOS INJ 4 MG/ML SDV ONE; +EPINEPHRINE 1 MG/ML 30ML VIAL ONE; +FENTANYL CITRATE/PF 100MCG/2 ML INJ ONE; +GLYCOPYRROLATE INJ 0.2 MG/ML VIAL ONE; +INSULIN SC; +JANUMET 50-5001 EACH; +KETOROLAC TROMETHAMINE 30 MG/ML VIAL ONE; +LIDOCAINE HCL 2% LOCAL INJ 5 ML SDV VIAL INJ ONE; +LOPRESSOR25 MG PO; +MIDAZOLAM HCL 2 MG/2 ML VIAL ONE; +MUPIROCIN22 GM; +NEOSTIGMINE 1 MG/ML 10ML VIAL ONE; +ONDANSETRON HCL INJ 2MG/ML 2ML 2 MG/ML VIAL ONE; +PANTOPRAZOLE SO40 MG; +POVIDONE IODINE 0.05% 0.05 % ML PO ONE; +PROPOFOL IV EMULSION 10 MG/ML 20 ML VIAL ONE; +ROCURONIUM BROMIDE 10 MG/ML 5ML VIAL IV ONE; +ROPIVACAINE 0.5% 5 MG/ML 30 ML SDV ONE; +SEVOFLURANE INHAL SOLN 250 ML PEN BTL ONE
[2022-07-18 09:14] LABS: ANION GAP 16.2 mmol/L (8-16); CALCIUM 9.1 mg/dL (8.4-10.2); CREATININE, SERUM 0.75 mg/dL (0.72-1.25); POTASSIUM 4.2 mmol/L (3.5-5.1)
[2022-07-18 13:00] VITALS: BP 146/85
== END | disposition home or self-care (01) ==
LOC: OR 08:12
PROVIDERS: ATTEND Specialist
DX: M75.121 Complete rotator cuff tear or rupture of right shoulder, not specified as traumatic (principal); M19.011 Primary osteoarthritis, right shoulder; S46.211A Strain of muscle, fascia and tendon of other parts of biceps, right arm, initial encounter; X58.XXXA Exposure to other specified factors, initial encounter; M65.811 Other synovitis and tenosynovitis, right shoulder; M94.211 Chondromalacia, right shoulder; E11.9 Type 2 diabetes mellitus without complications; Z88.0 Allergy status to penicillin; Z01.810 Encounter for preprocedural cardiovascular examination; Z01.812 Encounter for preprocedural laboratory examination; Z20.822 Contact with and (suspected) exposure to COVID-19; Z79.4 Long term (current) use of insulin
CPT/HCPCS: 0223U; 29824; 29826; 29827; 36415 ×2; 80048; 82948; 93005; C1713; J0131; J1100; J1885; J2001; J2250; J2405; J2704; J2710; J2795; J3010

== ENCOUNTER 2025-07-06 12:31 | Emergency (ER) | payer BC, OTHER ==
[~2025-07-06] VITALS: Ht 172.7 cm; Wt 80.3 kg
[~2025-07-06 12:31] MED LIST changes: -ACETAMINOPHEN 1000 MG/100 ML IV ONE; -CLINDAMYCIN PHOS 900MG/ 50ML 50 ML IV ONE; -DEXAMETHASONE SOD PHOS INJ 4 MG/ML SDV ONE; -EPINEPHRINE 1 MG/ML 30ML VIAL ONE; -FENTANYL CITRATE/PF 100MCG/2 ML INJ ONE; -GLYCOPYRROLATE INJ 0.2 MG/ML VIAL ONE; -KETOROLAC TROMETHAMINE 30 MG/ML VIAL ONE; -LIDOCAINE HCL 2% LOCAL INJ 5 ML SDV VIAL INJ ONE; -MIDAZOLAM HCL 2 MG/2 ML VIAL ONE; -NEOSTIGMINE 1 MG/ML 10ML VIAL ONE; -ONDANSETRON HCL INJ 2MG/ML 2ML 2 MG/ML VIAL ONE; -POVIDONE IODINE 0.05% 0.05 % ML PO ONE; -PROPOFOL IV EMULSION 10 MG/ML 20 ML VIAL ONE; -ROCURONIUM BROMIDE 10 MG/ML 5ML VIAL IV ONE; -ROPIVACAINE 0.5% 5 MG/ML 30 ML SDV ONE; -SEVOFLURANE INHAL SOLN 250 ML PEN BTL ONE
[2025-07-06 13:35] VITALS: RESP 17; TEMP 98.1
[2025-07-06 14:23] LABS: BASOPHILS % 0.8 % (0.0-1.0); EOSINOPHILS % 2.0 % (0.0-6.0); LYMPHOCYTES % 30.4 % (18.0-39.1); MONOCYTES % 7.4 % (4.4-11.3); NEUTROPHILS % 59.1 % (38.7-80.0); RED CELL DISTRIBUTION WIDTH 13.2 % (11.7-14.4)
[2025-07-06 14:41] LABS: INR 0.85
[2025-07-06 14:52] LABS: EST GLOMERULAR FILTRATION RATE 103.0 ML/MIN (>=60)
[2025-07-06] MEDS ORDERED: SODIUM CHLORIDE 0.9% 100 ML ONE (15:00)
[2025-07-06] MEDS ORDERED: IOPAMIDOL 370 MG/ML 100 ML INFUS..BTL INJ ONE (15:00)
[2025-07-06] MEDS: SODIUM CHLORIDE 0.9% 1000ML 1,000 ML IV STA (15:21)
[2025-07-06 17:00] VITALS: PULSE 81; O2SAT 96
[2025-07-06] MEDS: KETOROLAC TROMETHAMINE 30 MG/ML VIAL IV STA (17:52)
== END 2025-07-06 17:58 | disposition home or self-care (01) ==
LOC: ER 13:50
DX: R20.0 Anesthesia of skin (principal); R51.9 Headache, unspecified; M54.2 Cervicalgia; E11.65 Type 2 diabetes mellitus with hyperglycemia; E78.5 Hyperlipidemia, unspecified; E78.00 Pure hypercholesterolemia, unspecified; Z87.442 Personal history of urinary calculi
CPT/HCPCS: 36415; 70491; 70496; 70498; 71045; 80053; 82550; 83735; 84443; 84484; 85025; 85610; 85730; 93005; 99284; J1885; J7030; J7050; Q9967